=== PATIENT | female | born 2000 | race Caucasian/White ===

== ENCOUNTER 2018-07-10 08:30 | Emergency (ER) | payer MEDICAID, OTHER ==
[2018-07-10 08:38] VITALS: BP 121/68
--- NOTE | 2018-07-10 09:44 | EDM.PDOC ---
ED HPI GENERAL MEDICAL PROBLEM - General Chief Complaint: Back Pain or Injury Stated Complaint: SHARP PAIN IN NECK INTO SHLDR BLADES Time Seen by Provider: 07/10/18 08:50 Source of Information: Reports: Patient History Limitations: Reports: No Limitations - History of Present Illness INITIAL COMMENTS - FREE TEXT/NARRATIVE: Kizzy is a 18 yr old female who presents to the ED with complaints of midthoracic back pain. States she has been dealing with the pain for the last 4 months and gradually getting worse. States last night it was the worst and had difficulty sleeping. Admits it starts in her upper back and extends up to the bottom of her neck. States she does feel some weakness in both hands. She states she hasn't taken anything for it. Has not seen chiropractor. Denies any history of trauma or injury that she is aware of. Upper Back Pain Score (Numeric/FACES): 7 - Related Data Allergies Allergy/AdvReac Type Severity Reaction Status Date / Time No Known Allergies Allergy Verified 07/10/18 08:38 Home Meds: Home Meds . [No Known Home Meds] 07/10/18 [History] Past Medical History HEENT History: Reports: None Cardiovascular History: Reports: None, Other (See Below) Other Cardiovascular History: had cardiac surgery for repair of " 2 holes in heart" when she was a child. Respiratory History: Reports: Asthma Gastrointestinal History: Reports: None Genitourinary History: Reports: None RECEIVING SPECIALIST History: Reports: Musculoskeletal History: Reports: None Neurological History: Reports: None Psychiatric History: Reports: Anxiety, Depression Endocrine/Metabolic History: Reports: None Hematologic History: Reports: None Immunologic History: Reports: None Oncologic (Cancer) History: Reports: None Dermatologic History: Reports: None - Infectious Disease History Infectious Disease History: Reports: None - Past Surgical History Head Surgeries/Procedures: Reports: None Social & Family History - Family History Family Medical History: Noncontributory Respiratory: Reports: Other (See Below) - Tobacco Use Smoking Status *Q: Current Every Day Smoker Years of Tobacco use: 4 Packs/Tins Daily: 1 - Caffeine Use Caffeine Use: Reports: Energy Drinks, Soda - Recreational Drug Use Recreational Drug Use: No - Sexual History Sexual History: Reports: Sexually Active, Single Partner - Living Situation & Occupation Living situation: Reports: with Family ED ROS GENERAL - Review of Systems Review Of Systems: ROS reveals no pertinent complaints other than HPI. Musculoskeletal: Reports: Back Pain, Muscle Stiffness Neurological: Reports: No Symptoms ED EXAM, UPPER BACK/NECK PAIN - Physical Exam Exam: See Below Exam Limited By: No Limitations General Appearance: Alert, WD/WN, No Apparent Distress Neck Exam: Paraspinous Muscle Tender. No: Muscle Spasm, Spinous Processes Tender Back Exam: Decreased Range of Motion, Paraspinal Tenderness (C7 - T10 bilaterally. ). No: Muscle Spasm Extremities: Normal Inspection, Normal Range of Motion Neurologic: territory business manager II-XII nml As Tested, No Motor/Sensory Deficits, Alert, Normal Mood/Affect, Oriented x 3 Course - Vital Signs Last Recorded V/S: Last Vital Signs Temp 96.8 F 07/10/18 08:36 Pulse 64 07/10/18 08:36 Resp 20 07/10/18 08:36 BP 121/68 07/10/18 08:36 Pulse Ox 98 07/10/18 08:36 - Orders/Labs/Meds Orders: Active Orders 24 hr Category Date Time Status Cervical Spine 2V or 3V [CR] Stat Exams 07/10/18 08:58 Taken Thoracic Spine 2V [CR] Stat Exams 07/10/18 08:58 Taken Departure - Departure Time of Disposition: 09:45 Disposition: Home, Self-Care 01 Clinical Impression: Mid back pain, Cervical pain (neck) - Discharge Information Instructions: Back Pain, Adult, [id number] Additional Instructions: 1) Norflex 5 mg - 1 tablet every 8 hours as needed for pain/tight muscles. May cause drowsiness 2) Toradol 10mg - 1 tablet every 8 hours as needed for pain 3) Physical therapy referral 4) If no improvement or worsening symptoms, recommend following up with primary for reevaluation and scheduling of MRI 5) Return to ER if any concerns as well. 6) May alternate heat and ice 7) Increase water intake to lubricate spinal joints. - Problem List & Annotations (1) Cervical pain (neck) SNOMED Code(s): 04531687 Code(s): M54.2 - CERVICALGIA Status: Acute (2) Mid back pain SNOMED Code(s): 411786226 Code(s): M54.9 - DORSALGIA, UNSPECIFIED Status: Acute - My Orders Last 24 Hours: My Active Orders 07/10/18 08:58 Cervical Spine 2V or 3V [CR] Stat Thoracic Spine 2V [CR] Stat - Assessment/Plan Last 24 Hours: My Active Orders 07/10/18 08:58 Cervical Spine 2V or 3V [CR] Stat Thoracic Spine 2V [CR] Stat Plan: X-rays appeared negative. No fractures noted. Will refer to PT for further eval and treatment. Medicines prescribed to be used as directed. Discussed drowsiness. follow up with primary in 2 weeks, sooner if any concerns.
== END 2018-07-10 09:54 | disposition home or self-care (01) ==
LOC: CC.ED 08:30
DX: M54.9 Dorsalgia, unspecified (principal); M54.2 Cervicalgia; F17.200 Nicotine dependence, unspecified, uncomplicated; Z87.74 Personal history of (corrected) congenital malformations of heart and circulatory system
CPT/HCPCS: 72040; 72070; 99283